=== PATIENT | male | born 1990 | race Caucasian/White ===

== ENCOUNTER 2016-05-19 15:19 | Emergency (ER) | payer OTHER, MEDICAID ==
[~2016-05-19] VITALS: Ht 167.6 cm; Wt 80.7 kg
[2016-05-19 15:28] VITALS: BP 133/77
--- NOTE | 2016-05-19 16:26 | NUR ---
PATIENT LEFT WITHOUT BEING SEEN BY DR. HERBERT. NO FURTHER CARE PROVIDED FOR PATIENT.
== END 2016-05-19 16:26 | disposition left against medical advice (07) ==
LOC: MED 15:19
DX: H92.03 Otalgia, bilateral (principal); Z53.21 Procedure and treatment not carried out due to patient leaving prior to being seen by health care provider

== ENCOUNTER 2017-03-15 07:59 | Emergency (ER) | payer MEDICAID, OTHER ==
[~2017-03-15] VITALS: Ht 167.6 cm; Wt 79.0 kg
[2017-03-15 08:10] VITALS: BP 124/66
--- NOTE | 2017-03-15 08:12 | NUR ---
Pt taken to overflow.
--- NOTE | 2017-03-15 08:54 | NUR ---
PATIENT IS A 26 YO C/O SORE THROAT AND NECK PAIN, AWAKE AND ALERT NO ACUTE DISTRESS, ABLE TO AMBULATE.
[2017-03-15 11:25] VITALS: BP 124/66
--- NOTE | 2017-03-15 11:54 | NUR ---
Patient discharged with v/s stable. Written and verbal after care instructions given and explained. Patient verbalized understanding. Ambulatory with steady gait. All questions addressed prior to discharge. Advised to follow up with PMD.
== END 2017-03-15 11:25 | disposition home or self-care (01) ==
LOC: MED 07:59
DX: B34.9 Viral infection, unspecified (principal); M62.838 Other muscle spasm; M54.2 Cervicalgia
CPT/HCPCS: 71045; 99283

== ENCOUNTER 2017-10-10 17:54 | Emergency (ER) | payer OTHER ==
[~2017-10-10] VITALS: Ht 167.6 cm; Wt 79.4 kg
[2017-10-10 17:57] VITALS: BP 132/76
--- NOTE | 2017-10-10 17:59 | NUR ---
PT SENT TO [facility] AWARE OF PT STATUS.
--- NOTE | 2017-10-10 18:47 | NUR ---
PT TO RM 9 WITH STEADY GAIT
--- NOTE | 2017-10-10 18:50 | NUR ---
27M BIB SELF WITH C/O RIGHT EAR PAIN, SUBJECTIVE FEVERS, AND SORE THROAT X 3 DAYS. PT REPORTS OF 10/10 THROAT PAIN. NO DROOLING NOTED. CLEAR SPEECH WITH FULL SENTENCES. PT DENIES N/V/D. STATES HE TOOK IBUROFEN WITHOUT RELIEF. PT AOX4 WITH EVEN AND STEADY GAIT; VSS; PATIENT POSITIONED FOR COMFORT; HOB ELEVATED; BEDRAILS UP X2; BED DOWN. ER MD MADE AWARE OF PT STATUS.
--- NOTE | 2017-10-10 18:50 | NUR ---
PT AMBULATED TO ER BED 09
--- NOTE | 2017-10-10 19:16 | NUR ---
Pt report given to John KRAMER. Transfer of care at this time.
--- NOTE | 2017-10-10 19:20 | NUR ---
RECEIVED REPORT FROM AM NURSE. PT RESTING IN BED, RR EVEN AND UNLABORED. STREP CULTURE COLLECTED AND BROUGHT TO LAB.
--- NOTE | 2017-10-10 19:45 | NUR ---
DR VELEZ AT BEDSIDE TO EVALUATE PT.
--- NOTE | 2017-10-10 19:55 | NUR ---
PT RESTING IN BED, VSS, PT REPORTS 5/10 TOLERABLE R EAR PAIN AT THIS TIME. RR EVEN AND UNLABORED. ALL NEEDS MET.
[2017-10-10] MEDS ORDERED: KETOROLAC 30 MG/ML VIAL IM ONE (20:00)
[2017-10-10] MEDS ORDERED: DEXAMETHASONE 10 MG/ML VIAL PO ONE (20:00)
[2017-10-10 20:30] VITALS: BP 120/70
--- NOTE | 2017-10-10 20:30 | NUR ---
Patient discharged with v/s stable. Written and verbal after care instructions given and explained. Patient alert, oriented and verbalized understanding of instructions. Ambulatory with steady gait. All questions addressed prior to discharge. ID band removed. Patient advised to follow up with PMD. Rx of TYLENOL WITH CODEINE,NAPROSYN,AMOXICILLIN given. Patient educated on indication of medication including possible reaction and side effects. Opportunity to ask questions provided and answered.
== END 2017-10-10 20:30 | disposition home or self-care (01) ==
LOC: MED 17:54
DX: J02.9 Acute pharyngitis, unspecified (principal); M79.1 Myalgia
CPT/HCPCS: 87081; 96372; 99284; J1100; J1885

== ENCOUNTER 2018-08-02 00:17 | Emergency (ER) | payer OTHER ==
[~2018-08-02] VITALS: Ht 167.6 cm; Wt 89.4 kg
[2018-08-02 00:21] VITALS: BP 130/80
--- NOTE | 2018-08-02 00:23 | NUR ---
PT TAKEN TO BED 12.
--- NOTE | 2018-08-02 00:33 | NUR ---
Pt presents to ED with complaints of left ear pain starting this morning. Pt holding onto left ear, c/o severe pain 10/. Pt states he took Tylenol 10 mins prior to arrival and reports no relief. Denies any changes in hearing loss. AOX4, clear speech. VSS.
--- NOTE | 2018-08-02 01:27 | NUR ---
Patient discharged with v/s stable. Patient acting appropriatly, states pain is 3/10 and he is coping, states he is ready to go home. Written and verbal after care instructions given and explained. Patient alert, oriented and verbalized understanding of instructions. Ambulatory with steady gait. All questions addressed prior to discharge. ID band removed. Patient advised to follow up with PMD. Rx of [place] given. Patient educated on indication of medication including possible reaction and side effects. Opportunity to ask questions provided and answered.
[2018-08-02 01:32] VITALS: BP 127/83
== END 2018-08-02 01:27 | disposition home or self-care (01) ==
LOC: MED 00:17
DX: H66.92 Otitis media, unspecified, left ear (principal)
CPT/HCPCS: 99283

== ENCOUNTER 2019-01-07 05:49 | Emergency (ER) | payer OTHER ==
[~2019-01-07] VITALS: Ht 167.6 cm; Wt 87.5 kg
[2019-01-07 05:50] VITALS: BP 117/67
--- NOTE | 2019-01-07 05:52 | NUR ---
TO LOBBY , A/W BED AMBULATORY
--- NOTE | 2019-01-07 06:36 | NUR ---
28 Y/O M PRESENTS TO ER C/O N/V/D SINCE YESTERDAY. PT ALSO C/O OF CHILLS. DENIES BLOOD IN VOMIT OR STOOL. PT DENIES ANY PAIN, PAIN LEVEL 0/10. ALLERGIES: NKA. MED HX: NONE. HOB ELEVATED, BED IN LOWEST POSITION, BED RAIL UP X1. WAITING FOR ERMD TO EVALUATE PT.
--- NOTE | 2019-01-07 07:05 | NUR ---
TRANSFER OF CARE AND REPORT GIVEN TO WILLIAMS MILNER
--- NOTE | 2019-01-07 07:10 | NUR ---
RECIEVED REPORT FROM WILLIAMS MOSHER. WILL CONT PLAN OF CARE AT THIS TIME.
[2019-01-07] MEDS ORDERED: NACL 0.9% 1,000 ML IV ONE (07:55)
[2019-01-07] MEDS ORDERED: KETOROLAC 30 MG/ML VIAL IVP ONE (07:55)
[2019-01-07] MEDS ORDERED: ONDANSETRON 4 MG/2 ML VIAL IVP ONE (07:55)
[2019-01-07 08:34] LABS: HEMATOCRIT 47.9 % (36-52); HEMOGLOBIN 16.3 g/dL (12.0-18.0); MEAN CORPUSCULAR HEMOGLOBIN 30 pg (27-31); MEAN CORPUSCULAR HGB CONC 34 g/dL (33-37); MEAN CORPUSCULAR VOLUME 87.8 fL (80-94); PLATELET COUNT (AUTO) 257 K/uL (140-450); RED BLOOD CELL COUNT(AUTO) 5.46 MIL/uL (4.20-6.10); RED CELL DISTRIBUTION WIDTH 14.1 % (11.6-13.7); WHITE BLOOD COUNT (AUTO) 8.3 K/uL (4.8-10.8)
[2019-01-07 09:00] LABS: ALBUMIN 4.1 g/dL (3.4-5.0); CARBON DIOXIDE 27.7 mmol/L (21-32); CREATININE 0.8 mg/dL (0.7-1.3); POTASSIUM 3.7 mmol/L (3.5-5.1); TOTAL BILIRUBIN 0.6 mg/dL (0.0-1.0)
[2019-01-07 09:17] LABS: LYMPHOCYTES % (MANUAL) 9 % (20-46)
[2019-01-07 10:37] VITALS: BP 117/67
== END 2019-01-07 10:39 | disposition home or self-care (01) ==
LOC: MED 05:49
DX: A08.4 Viral intestinal infection, unspecified (principal); R11.2 Nausea with vomiting, unspecified
CPT/HCPCS: 36415; 80053; 81002; 85025; 96361; 96374; 96375; 99283; J1885; J2405; J7030

== ENCOUNTER 2019-05-04 09:24 | Emergency (ER) | payer OTHER ==
[~2019-05-04] VITALS: Ht 167.6 cm; Wt 84.8 kg
[2019-05-04 09:37] VITALS: BP 119/73
--- NOTE | 2019-05-04 09:52 | NUR ---
29 Y/O M FROM TRIAGE WITH C/O COLD SYMPTOMS--COUGH, CONGESTION X 1 WEEK. AFEBRILE IN TRIAGE. NO DISTRESS NOTED. IN BED FOR MSE.
--- NOTE | 2019-05-04 10:44 | NUR ---
DR. AGUIAR AT BEDSIDE.
[2019-05-04 11:58] VITALS: BP 114/69
--- NOTE | 2019-05-04 11:59 | NUR ---
Patient discharged with v/s stable. Written and verbal after care instructions given and explained. Patient alert, oriented and verbalized understanding of instructions. Ambulatory with steady gait. All questions addressed prior to discharge. ID band removed. Patient advised to follow up with PMD. Rx of PREDNISONE AND MOTRIN given. Patient educated on indication of medication including possible reaction and side effects. Opportunity to ask questions provided and answered.
== END 2019-05-04 11:59 | disposition home or self-care (01) ==
LOC: MED 09:24
DX: R05 Cough (principal); R07.9 Chest pain, unspecified
CPT/HCPCS: 99283

== ENCOUNTER 2020-10-15 08:37 | Emergency (ER) | payer OTHER ==
[~2020-10-15] VITALS: Ht 167.6 cm; Wt 83.9 kg
[2020-10-15 09:00] VITALS: BP 124/76
--- NOTE | 2020-10-15 09:45 | NUR ---
ROSANGELA NOVEL SAMPLE COLLECTED AND WALKED TO LAB
[2020-10-15] MEDS ORDERED: ONDANSETRON 4 MG ODT PO ONE (10:05)
[2020-10-15] MEDS ORDERED: ONDA-24 PO (10:18)
--- NOTE | 2020-10-15 10:32 | NUR ---
Patient discharged with v/s stable. Written and verbal after care instructions ABOUT VIRAL ILLNESS AND PREVENTING THE SPREAD OD COVID 19 IF YOU ARE SICK given and explained. Patient alert, oriented and verbalized understanding of instructions. Ambulatory with steady gait. All questions addressed prior to discharge. ID band removed. Patient advised to follow up with PMD. Rx of ZOFRAN given. Patient educated on indication of medication including possible reaction and side effects. Opportunity to ask questions provided and answered.
== END 2020-10-15 10:32 | disposition home or self-care (01) ==
LOC: MED 08:37
DX: U07.1 COVID-19 (principal); Z79.899 Other long term (current) drug therapy
CPT/HCPCS: 99283; Q0162; U0003

== ENCOUNTER 2021-03-05 16:22 | Emergency (ER) | payer OTHER ==
[~2021-03-05] VITALS: Ht 167.6 cm; Wt 74.8 kg
[~2021-03-05 16:22] MED LIST: ONDA-188 PO
[2021-03-05 16:45] VITALS: BP 116/74
[2021-03-05] MEDS ORDERED: ACET-10509 PO (18:21)
[2021-03-05] MEDS ORDERED: PROM118S5 PO (18:21)
[2021-03-05 18:26] VITALS: BP 111/72
--- NOTE | 2021-03-05 18:26 | NUR ---
NO NURSING CARE GIVEN-Patient discharged with v/s stable. Written and verbal after care instructions given and explained. Patient alert, oriented and verbalized understanding of instructions. Ambulatory with steady gait. All questions addressed prior to discharge. ID band removed. Patient advised to follow up with PMD. Rx of TYLENOL EXgiven. Patient educated on indication of medication including possible reaction and side effects. Opportunity to ask questions provided and answered.
--- NOTE | 2021-03-06 15:51 | NUR ---
Note toy in EDM - 03/06/21 at 1706 by KATY NO NURSING CARE GIVEN-Patient discharged with v/s stable. Written and verbal after care instructions given and explained. Patient alert, oriented and verbalized understanding of instructions. Ambulatory with steady gait. All questions addressed prior to discharge. ID band removed. Patient advised to follow up with PMD. Rx of TYLENOL EXgiven. Patient educated on indication of medication including possible reaction and side effects. Opportunity to ask questions provided and answered.
== END 2021-03-05 18:26 | disposition home or self-care (01) ==
LOC: MED 16:22
DX: J06.9 Acute upper respiratory infection, unspecified (principal); R07.81 Pleurodynia; Z79.899 Other long term (current) drug therapy
CPT/HCPCS: 71045; 99283

== ENCOUNTER 2023-08-09 08:52 | Emergency (ER) | payer OTHER ==
[~2023-08-09] VITALS: Ht 167.6 cm; Wt 81.6 kg
[~2023-08-09 08:52] MED LIST changes: +ACET-10509 PO; +PROM118S5 PO
[2023-08-09 08:55] VITALS: BP 113/71; PULSE 61; RESP 18; TEMP 97.6; O2SAT 100
[2023-08-09] MEDS: KETOROLAC 30 MG/ML VIAL IM ONE (09:52)
[2023-08-09] MEDS ORDERED: NAPR-337 PO (10:04)
[2023-08-09] MEDS ORDERED: ACET-8905 PO (10:04)
== END 2023-08-09 10:21 | disposition home or self-care (01) ==
LOC: MED 08:52
DX: M54.32 Sciatica, left side (principal); F12.90 Cannabis use, unspecified, uncomplicated; Z79.1 Long term (current) use of non-steroidal anti-inflammatories (NSAID); Z79.899 Other long term (current) drug therapy
CPT/HCPCS: 96372; 99283; J1885